=== PATIENT | female | born 1940 | race Caucasian/White ===

== ENCOUNTER → 2018-01-24 02:31 | Outpatient (CLI) | payer MEDICARE, OTHER, SELFPAY ==
[2018-01-24 13:22] LABS: INR 2.2 (1.0-3.5); Prothrombin Time 21.3 sec (9.3-10.8)
== END ==
PROVIDERS: PCP Family Medicine; Visit Provider Family Medicine
DX: I48.91 Unspecified atrial fibrillation (principal); Z79.01 Long term (current) use of anticoagulants
CPT/HCPCS: 36415; 85610

== ENCOUNTER 2018-02-21 02:29 | Outpatient (CLI) | payer MEDICARE, OTHER, SELFPAY ==
[2018-02-21 13:05] LABS: INR 2.9 (1.0-3.5); Prothrombin Time 27.6 sec (9.3-10.8)
== END 2018-02-21 02:49 ==
PROVIDERS: PCP Family Medicine; Visit Provider Family Medicine
DX: I48.91 Unspecified atrial fibrillation (principal); Z79.01 Long term (current) use of anticoagulants
CPT/HCPCS: 36415; 85610

== ENCOUNTER 2018-03-22 02:04 | Outpatient (CLI) | payer MEDICARE, OTHER, SELFPAY ==
[2018-03-22 11:49] LABS: INR 2.8 (1.0-3.5); Prothrombin Time 26.5 sec (9.3-10.8)
== END 2018-03-22 02:24 ==
PROVIDERS: PCP Family Medicine; Visit Provider Family Medicine
DX: I48.91 Unspecified atrial fibrillation (principal); Z79.01 Long term (current) use of anticoagulants
CPT/HCPCS: 36415; 85610

== ENCOUNTER 2018-04-17 07:59 | Outpatient (CLI) | payer MEDICARE, OTHER, SELFPAY ==
[2018-04-17 12:22] LABS: Prothrombin Time 37.1 sec (9.3-10.8)
== END 2018-04-17 08:19 ==
PROVIDERS: PCP Family Medicine; Visit Provider Family Medicine
DX: I48.91 Unspecified atrial fibrillation (principal); Z79.01 Long term (current) use of anticoagulants
CPT/HCPCS: 36415; 85610

== ENCOUNTER 2018-04-20 10:42 | Outpatient (CLI) | payer MEDICARE, OTHER, SELFPAY ==
[2018-04-20 12:52] LABS: INR 1.5 (1.0-3.5); Prothrombin Time 14.4 sec (9.3-10.8)
== END 2018-04-20 11:02 ==
PROVIDERS: PCP Family Medicine; Visit Provider Family Medicine
DX: I48.91 Unspecified atrial fibrillation (principal); Z79.01 Long term (current) use of anticoagulants
CPT/HCPCS: 36415; 85610

== ENCOUNTER 2018-04-25 02:03 | Outpatient (CLI) | payer MEDICARE, OTHER, SELFPAY ==
[2018-04-25 10:29] LABS: INR 2.1 (1.0-3.5); Prothrombin Time 19.8 sec (9.3-10.8)
== END 2018-04-25 02:23 ==
PROVIDERS: PCP Family Medicine; Visit Provider Family Medicine
DX: I48.91 Unspecified atrial fibrillation (principal); Z79.01 Long term (current) use of anticoagulants
CPT/HCPCS: 36415; 85610

== ENCOUNTER 2018-05-22 02:28 | Outpatient (CLI) | payer MEDICARE, OTHER, SELFPAY ==
[2018-05-22 13:26] LABS: INR 1.9 (1.0-3.5)
== END 2018-05-22 02:48 ==
PROVIDERS: PCP Family Medicine; Visit Provider Family Medicine
DX: I48.91 Unspecified atrial fibrillation (principal); Z79.01 Long term (current) use of anticoagulants
CPT/HCPCS: 36415; 85610

== ENCOUNTER 2018-06-21 01:45 | Outpatient (CLI) | payer MEDICARE, OTHER, SELFPAY ==
[2018-06-21 12:07] LABS: INR 1.8 (0.9-1.1); Prothrombin Time 18.5 sec (9.3-11.0)
== END 2018-06-21 02:05 ==
PROVIDERS: PCP Family Medicine; Visit Provider Family Medicine
DX: I48.91 Unspecified atrial fibrillation (principal); Z79.01 Long term (current) use of anticoagulants; M70.61 Trochanteric bursitis, right hip; M76.891 Other specified enthesopathies of right lower limb, excluding foot; M70.62 Trochanteric bursitis, left hip; R29.898 Other symptoms and signs involving the musculoskeletal system
CPT/HCPCS: 36415; 99214; 85610

== ENCOUNTER 2018-06-27 02:15 | Outpatient (CLI) | payer MEDICARE, OTHER, SELFPAY ==
[2018-06-27 12:46] LABS: INR 2.7 (0.9-1.1); Prothrombin Time 26.9 sec (9.3-11.0)
== END 2018-06-27 02:35 ==
PROVIDERS: PCP Family Medicine; Visit Provider Family Medicine
DX: I48.91 Unspecified atrial fibrillation (principal); Z79.01 Long term (current) use of anticoagulants
CPT/HCPCS: 36415; 85610

== ENCOUNTER 2018-07-24 02:21 | Outpatient (CLI) | payer MEDICARE, OTHER, SELFPAY ==
[2018-07-24 12:57] LABS: INR 2.4 (0.9-1.1)
== END 2018-07-24 02:41 ==
PROVIDERS: PCP Family Medicine; Visit Provider Family Medicine
DX: I48.91 Unspecified atrial fibrillation (principal); Z79.01 Long term (current) use of anticoagulants
CPT/HCPCS: 36415; 85610

== ENCOUNTER 2018-08-11 16:10 | Outpatient (CLI) | payer MEDICARE, OTHER, SELFPAY ==
[2018-08-11 16:51] LABS: Abs Immature Grans 0.02 k/cumm (0.0-0.09); Absolute Basophil Count 0.02 k/cumm (0.0-0.2); Absolute Eosinophil Count 0.08 k/cumm (0.0-0.7); Absolute Lymphocyte Count 1.57 k/cumm (1.2-3.4); Absolute Monocyte Count 0.65 k/cumm (0.11-0.7); Absolute Neutrophil Count 4.04 k/cumm (1.2-6.7); Basophils % 0.3; Eosinophils % 1.3; HGB 10.9 g/dL (12.0-15.5); Immature Grans % 0.3; Lymphocytes % 24.6; Mean Corpuscular Hemoglobin 29.1 pg (27.0-33.0); Mean Platelet Volume 9.2 fL (8.0-11.0); Monocytes % 10.2; Neutrophils % 63.3; Platelet Count 185 x1000/uL (130-400); RBC 3.75 m/cumm (4.00-5.20); RBC Distribution Width 13.4 % (11.7-14.6); White Blood Cell Count 6.38 k/cumm (4.4-10.8)
[2018-08-11 18:04] LABS: Anion Gap 8.4 mmol/L (3-11); BUN 31 mg/dL (7-18); CO2 28.6 mmol/L (21.0-32.0); CREATININE 0.97 mg/dL (0.55-1.02); Calcium 8.7 mg/dL (8.5-10.1); Chloride 104 mmol/L (98-107); Estimated GFR 55.83 (mL/min/1.73m2); Glucose 110 mg/dL (70-100); Potassium 4.2 mmol/L (3.5-5.1); Sodium 141 mmol/L (136-145)
== END 2018-08-11 16:30 ==
PROVIDERS: PCP Family Medicine; Visit Provider Family Medicine
DX: R50.9 Fever, unspecified (principal)
CPT/HCPCS: 36415; 80048; 85025

== ENCOUNTER 2018-08-18 02:26 | Outpatient (CLI) | payer MEDICARE, OTHER, SELFPAY ==
[2018-08-18 13:40] LABS: INR 3.4 (0.9-1.1); Prothrombin Time 34.7 sec (9.3-11.0)
== END 2018-08-18 02:46 ==
PROVIDERS: PCP Family Medicine; Visit Provider Family Medicine
DX: I48.91 Unspecified atrial fibrillation (principal); Z79.01 Long term (current) use of anticoagulants
CPT/HCPCS: 36415; 85610

== ENCOUNTER 2018-08-25 01:36 | Outpatient (CLI) | payer MEDICARE, OTHER, SELFPAY | END 2018-08-25 01:56 | PROVIDERS: PCP Family Medicine; Visit Provider Family Medicine | DX: N39.0 Urinary tract infection, site not specified (principal) | CPT/HCPCS: 87086 ==

== ENCOUNTER 2018-08-28 01:55 | Outpatient (CLI) | payer MEDICARE, OTHER, SELFPAY ==
[2018-08-28 13:06] LABS: Prothrombin Time 45.3 sec (9.3-11.0)
[2018-08-28 13:19] LABS: ALT 26 U/L (12-78); AST 20 U/L (15-37); Albumin 3.8 g/dL (3.4-5.0); Alkaline Phosphatase 88 U/L (46-116); Bilirubin, Direct 0.07 mg/dL (0.00-0.20); Bilirubin, Total 0.2 mg/dL (0.2-1.0); Total Protein 7.1 g/dL (6.4-8.2)
[2018-08-28 13:40] LABS: INR 4.5 (0.9-1.1)
== END 2018-08-28 02:15 ==
PROVIDERS: PCP Family Medicine; Visit Provider Family Medicine
DX: I48.91 Unspecified atrial fibrillation (principal); Z79.01 Long term (current) use of anticoagulants; B35.1 Tinea unguium
CPT/HCPCS: 36415; 80076; 85610

== ENCOUNTER 2018-09-01 02:07 | Outpatient (CLI) | payer MEDICARE, OTHER, SELFPAY ==
[2018-09-01 11:27] LABS: INR 1.6 (0.9-1.1); Prothrombin Time 15.8 sec (9.3-11.0)
[2018-09-01 13:01] LABS: Iron 100 ug/dL (50-175); Total Iron Binding Capacity 302 ug/dL (250-450); Transferrin Sat 33 % (15-50)
[2018-09-01 13:15] LABS: Ferritin 116 ng/mL (8-388)
== END 2018-09-01 02:27 ==
PROVIDERS: PCP Family Medicine; Visit Provider Family Medicine
DX: I48.91 Unspecified atrial fibrillation (principal); D50.9 Iron deficiency anemia, unspecified
CPT/HCPCS: 36415; 82728; 83540; 83550; 85610

== ENCOUNTER 2018-09-06 09:00 | Outpatient (CLI) | payer MEDICARE, OTHER, SELFPAY | END 2018-09-06 09:20 | PROVIDERS: PCP Family Medicine; Visit Provider Family Medicine | DX: M54.9 Dorsalgia, unspecified (principal); M70.61 Trochanteric bursitis, right hip; M70.62 Trochanteric bursitis, left hip | CPT/HCPCS: 85027; 99213; 99214; 82565; 85610 ==

== ENCOUNTER 2018-09-11 02:18 | Outpatient (CLI) | payer MEDICARE, OTHER, SELFPAY ==
[2018-09-11 12:51] LABS: INR 2.6 (0.9-1.1); Prothrombin Time 26.6 sec (9.3-11.0)
== END 2018-09-11 02:38 ==
PROVIDERS: PCP Family Medicine; Visit Provider Family Medicine
DX: I48.91 Unspecified atrial fibrillation (principal); Z79.01 Long term (current) use of anticoagulants
CPT/HCPCS: 36415; 85610

== ENCOUNTER 2018-09-15 01:30 | Outpatient (CLI) | payer MEDICARE, OTHER, SELFPAY ==
[2018-09-15 12:36] LABS: INR 2.9 (0.9-1.1); Prothrombin Time 29.7 sec (9.3-11.0)
== END 2018-09-15 01:50 ==
PROVIDERS: PCP Family Medicine; Visit Provider Family Medicine
DX: I48.91 Unspecified atrial fibrillation (principal); Z79.01 Long term (current) use of anticoagulants
CPT/HCPCS: 36415; 85610

== ENCOUNTER 2018-09-21 00:56 | Outpatient (CLI) | payer MEDICARE, OTHER, SELFPAY ==
--- NOTE | 2018-09-21 07:49 | DI.US_ITS ---
SYMPTOM/DIAGNOSIS: RUQ PAIN, R10.11 ABDOMEN ULTRASOUND: The visualized liver parenchyma is normal in appearance. There is no evidence of cholelithiasis or biliary dilatation. Pancreas appears intact as visualized but the tail was not seen. The kidneys appear normal with no evidence of hydronephrosis or nephrolithiasis. Spleen is unremarkable except for an apparent small calcified granuloma. Abdominal aorta and IVC are of normal diameter. CONCLUSION: No evidence of cholelithiasis.
== END 2018-09-21 01:16 ==
PROVIDERS: PCP Family Medicine; Visit Provider Family Medicine
DX: R10.11 Right upper quadrant pain (principal)
CPT/HCPCS: 76700

== ENCOUNTER 2018-09-26 09:29 | Emergency (ER) | payer MEDICARE, OTHER, SELFPAY ==
[2018-09-26 09:33] VITALS: BP 143/68; PULSE 77; RESP 20; TEMP 37; O2SAT 97
--- NOTE | 2018-09-26 09:44 | DI.RAD_ITS ---
SYMPTOM/DIAGNOSIS: COUGH, RT PAIN PA AND LATERAL CHEST: Comparison is made with 07/09/13. The heart size is normal. The lungs appear clear. No infiltrate, effusion or pulmonary edema is seen. IMPRESSION: No acute abnormality.
--- NOTE | 2018-09-26 09:44 | W.ED.GENAD ---
Discharge Plan Disposition Patient Disposition: HOME Condition: Stable Discharge Details Chief Complaint: RespSymp Clinical Impression: Acute bronchitis Primary Care Provider: Jordan Lobo ED Provider: Dustin Mallory Home Meds and New Rx's Prescriptions: New guaifenesin [Mucinex] 600 mg tablet extended release 12hr 600 mg PO Q12H PRNQty: 10 RF: 0 Continued gabapentin 100 mg capsule 100 mg PO TID Qty: 90 RF: 2 riboflavin (vitamin B2) [Vitamin B-2] 100 MG tablet 400 mg PO 3x/week RF: 0 coenzyme Q10 30 MG capsule 30 mg PO DAILY RF: 0 magnesium oxide 250 MG tablet 250 mg PO DAILY RF: 0 lutein 20 MG capsule 20 mg PO DAILY RF: 0 ferrous sulfate 325 MG tablet 325 mg PO BID Qty: 60 RF: 2 levothyroxine [Synthroid] 112 MCG tablet 112 mcg PO DAILY Qty: 90 RF: 4 diltiazem HCl 30 mg tablet 30 mg PO BID Qty: 180 RF: 4 acyclovir 400 mg tablet 400 mg PO DAILY Qty: 90 RF: 4 warfarin [Coumadin] 5 mg tablet See Rx Instructions PO DIRECTED Qty: 135 RF: 3 vitamin A 8,000 UNIT capsule 1 tab PO QAM RF: 0 potassium chloride 10 MEQ tablet extended release 1 tab PO QAM RF: 0 Discharge Instructions Instructions: Acute Bronchitis (ED) Additional Instructions: As we discussed, we will hold on antibiotic treatment at this time. Return if you develop a fever, worsening cough, or any other acute concerns. [place] amounts of fluids to maintain hydration. Take Mucinex as prescribed. Continue regular medications. Follow-up with regular doctor if not improving in 7 days time. Medical Decision Making 78-year-old female with 2 days of cough with production of green sputum. She is well-appearing, in no acute distress, has unremarkable vital signs with normal oxygenation. She does have positive sick contacts with her who was admitted to the hospital with sepsis. She states his illness began with a similar upper respiratory infection. Referred for chest x-ray to rule out focal lobar consolidation. Patient takes warfarin for paroxysmal atrial fibrillation. She has allergies to penicillins, sulfa, doxycycline. We discussed a trial of outpatient surveillance and deferral of antibiotics at this time as I feel the risk of antibiotic treatment with what would likely be a cephalosporin, outweighs the benefit at this time. She is in agreement. She will return to follow-up with regular doctor for worsening HPI General Mode of arrival: ambulatory. Date/Time Provider Initiated Documentation: 09/26/18 09:31. Limitations to Documentation: no limitations. Information obtained by: patient. History of Present Illness 78 year old F presents to the emergency department with the chief complaint of Cough with production of sputum x2 days, described as moderate, Quality is described as dull, and is localized to the chest. Patient started experiencing this day(s) and it has been intermittent. No relieving factors improve symptom(s), No exacerbating factors reported . Patient notes cough. Patient did receive the following treatments prior to arrival, none Related Data Home Medications Medication Instructions Recorded Confirmed potassium chloride 1 tab PO QAM 07/13/14 09/26/18 vitamin A 1 tab PO QAM 07/13/14 09/26/18 coenzyme Q10 30 mg PO DAILY 09/09/16 09/26/18 lutein 20 mg PO DAILY 09/09/16 09/26/18 magnesium oxide 250 mg PO DAILY 09/09/16 09/26/18 riboflavin (vitamin B2) [Vitamin 400 mg PO 3x/week 09/09/16 09/26/18 B-2] ferrous sulfate 325 mg PO BID #60 tab-cap 11/11/16 09/26/18 levothyroxine [Synthroid] 112 mcg PO DAILY #90 tab-cap 12/08/17 09/26/18 diltiazem 30 mg tablet 30 mg PO BID #180 tab-cap 06/07/18 09/26/18 acyclovir 400 mg tablet 400 mg PO DAILY #90 tab-cap 07/12/18 09/26/18 warfarin 5 mg tablet See Rx Instructions PO DIRECTED 07/14/18 09/26/18 #135 tab-cap gabapentin 100 mg capsule 100 mg PO TID #90 cap 09/12/18 09/26/18 guaifenesin [Mucinex] 600 mg PO Q12H PRN #10 tab 09/26/18 Previous Rx's Medication Instructions Recorded levothyroxine [Synthroid] 112 mcg PO DAILY #90 tab-cap 12/08/17 diltiazem 30 mg tablet 30 mg PO BID #180 tab-cap 06/07/18 acyclovir 400 mg tablet 400 mg PO DAILY #90 tab-cap 07/12/18 warfarin 5 mg tablet See Rx Instructions PO DIRECTED 07/14/18 #135 tab-cap gabapentin 100 mg capsule 100 mg PO TID #90 cap 09/12/18 guaifenesin [Mucinex] 600 mg PO Q12H PRN #10 tab 09/26/18 Allergies Allergy/AdvReac Type Severity Reaction Status Date / Time Penicillins Allergy Intermediate KNEE Verified 09/26/18 09:36 SWELLING Sulfa (Sulfonamide Allergy Intermediate Hives Verified 09/26/18 09:36 Antibiotics) codeine AdvReac Intermediate NAUSEA/VOMI Verified 09/26/18 09:36 TING doxycycline AdvReac Intermediate HEADACHES Verified 09/26/18 09:36 morphine AdvReac Mild NAUSEA/VOMI Verified 09/26/18 09:36 TING Opioids-Meperidine and AdvReac Unknown unknown Verified 09/26/18 09:36 Related [Opioids-Meperidine \E&E\ Related] General Stated Complaint: RespSymp AMIE: 3 Review of Systems Review of Systems No difficulty breathing. She has been eating drinking normally. 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 Brother AIDS Other Family history of GI malignancy Social History Smoking/Tobacco Use Status: Former Tobacco Use Alcohol Intake: never Drug use: Never Substance use type: does not use Do you feel safe at home: Yes Do you feel safe in your relationship?: Yes Exam Narrative Exam Narrative: GEN: awake, alert, oriented 3. Pleasant, well groomed, interactive. HEAD: Normocephalic, atraumatic ENT: Mucous membranes moist, oropharynx unremarkable, External ear exam unremarkable EYES: PERRL, EOMI NECK: Full ROM, no MEGHA, no menigismus CHEST/RESP: Nontender, clear to auscultation bilateral, no wheeze/rhonchi/rales, cough noted CARDIOVASCULAR: RRR, no murmur, rub linda. 2+ Rad pulse bilateral ABDOMEN: Soft, nontender, no mass. +Bowel sounds EXT: Full ROM, no edema, no rash Neuro: Grossly normal neurologic exam, conversant, interactive. Psych: Speech fluent, thoughts congruent, affect normal Course Vital Signs Temperature 37.0 C 09/26/18 09:33 Pulse 77 09/26/18 09:33 Respiratory Rate 20 09/26/18 09:33 Blood Pressure 143/68 H 09/26/18 09:33 Pulse Oximetry 97 09/26/18 09:33 Temperature 37.0 C 09/26/18 09:33 Pulse 77 09/26/18 09:33 Respiratory Rate 20 09/26/18 09:33 Respiratory Effort Non-Labored 09/26/18 09:39 Respiratory Depth Normal 09/26/18 09:39 Blood Pressure 143/68 H 09/26/18 09:33 Pulse Oximetry 97 09/26/18 09:33 Oxygen Delivery Method Room Air 09/26/18 09:33 Oxygen Flow Rate 0 09/26/18 09:33 Pain Level 3 09/26/18 09:33
--- NOTE | 2018-09-26 09:51 | ED.GENADUL_ITS ---
Discharge Plan Disposition Patient Disposition: HOME Condition: Stable Discharge Details Chief Complaint: RespSymp Clinical Impression: Acute bronchitis Primary Care Provider: Jordan Lobo ED Provider: Dustin Mallory Home Meds and New Rx's Prescriptions: New guaifenesin [Mucinex] 600 mg tablet extended release 12hr 600 mg PO Q12H PRNQty: 10 RF: 0 Continued gabapentin 100 mg capsule 100 mg PO TID Qty: 90 RF: 2 riboflavin (vitamin B2) [Vitamin B-2] 100 MG tablet 400 mg PO 3x/week RF: 0 coenzyme Q10 30 MG capsule 30 mg PO DAILY RF: 0 magnesium oxide 250 MG tablet 250 mg PO DAILY RF: 0 lutein 20 MG capsule 20 mg PO DAILY RF: 0 ferrous sulfate 325 MG tablet 325 mg PO BID Qty: 60 RF: 2 levothyroxine [Synthroid] 112 MCG tablet 112 mcg PO DAILY Qty: 90 RF: 4 diltiazem HCl 30 mg tablet 30 mg PO BID Qty: 180 RF: 4 acyclovir 400 mg tablet 400 mg PO DAILY Qty: 90 RF: 4 warfarin [Coumadin] 5 mg tablet See Rx Instructions PO DIRECTED Qty: 135 RF: 3 vitamin A 8,000 UNIT capsule 1 tab PO QAM RF: 0 potassium chloride 10 MEQ tablet extended release 1 tab PO QAM RF: 0 Discharge Instructions Instructions: Acute Bronchitis (ED) Additional Instructions: As we discussed, we will hold on antibiotic treatment at this time. Return if you develop a fever, worsening cough, or any other acute concerns. [place] amounts of fluids to maintain hydration. Take Mucinex as prescribed. Continue regular medications. Follow-up with regular doctor if not improving in 7 days time. Medical Decision Making 78-year-old female with 2 days of cough with production of green sputum. She is well-appearing, in no acute distress, has unremarkable vital signs with normal oxygenation. She does have positive sick contacts with her who was admitted to the hospital with sepsis. She states his illness began with a sim ilar upper respiratory infection. Referred for chest x-ray to rule out focal lobar consolidation. Patient takes warfarin for paroxysmal atrial fibrillation. She has allergies to penicillins, sulfa, doxycycline. We discussed a trial of outpatient surveillance and deferral of antibiotics at this time as I feel the risk of antibiotic treatment with what would likely be a cephalosporin, outweighs the benefit at this time. She is in agreement. She will return to follow-up with regular doctor for worsening HPI General Mode of arrival: ambulatory . Date/Time Provider Initiated Documentation: 09/26/18 09:31 . Limitations to Documentation: no limitations . Information obtained by: patient . History of Present Illness 78 year old F presents to the emergency department with the chief complaint of Cough with production of sputum x2 days, described as moderate, Quality is described as dull, and is localized to the chest. Patient started experiencing this day(s) and it has been intermittent. No relieving factors improve symptom(s), No exacerbating factors reported . Patient notes cough. Patient did receive the following treatments prior to arrival, none Related Data Home Medications Medication Instructions Recorded Confirmed potassium chloride 1 tab PO QAM 07/13/14 09/26/18 vitamin A 1 tab PO QAM 07/13/14 09/26/18 coenzyme Q10 30 mg PO DAILY 09/09/16 09/26/18 lutein 20 mg PO DAILY 09/09/16 09/26/18 magnesium oxide 250 mg PO DAILY 09/09/16 09/26/18 riboflavin (vitamin B2) [Vitamin 400 mg PO 3x/week 09/09/16 09/26/18 B-2] ferrous sulfate 325 mg PO BID #60 tab-cap 11/11/16 09/26/18 levothyroxine [Synthroid] 112 mcg PO DAILY #90 tab-cap 12/08/17 09/26/18 diltiazem 30 mg tablet 30 mg PO BID #180 tab-cap 06/07/18 09/26/18 acyclovir 400 mg tablet 400 mg PO DAILY #90 tab-cap 07/12/18 09/26/18 warfarin 5 mg tablet See Rx Instructions PO DIRECTED 07/14/18 09/26/18 #135 tab-cap gabapentin 100 mg capsule 100 mg PO TID #90 cap 09/12/18 09/26/18 guaifenesin [Mucinex] 600 mg PO Q12H PRN #10 tab 09/26/18 Previous Rx's Medication Instructions Recorded levothyroxine [Synthroid] 112 mcg PO DAILY #90 tab-cap 12/08/17 diltiazem 30 mg tablet 30 mg PO BID #180 tab-cap 06/07/18 acyclovir 400 mg tablet 400 mg PO DAILY #90 tab-cap 07/12/18 warfarin 5 mg tablet See Rx Instructions PO DIRECTED 07/14/18 #135 tab-cap gabapentin 100 mg capsule 100 mg PO TID #90 cap 09/12/18 guaifenesin [Mucinex] 600 mg PO Q12H PRN #10 tab 09/26/18 Allergies Allergy/AdvReac Type Severity Reaction Status Date / Time Penicillins Allergy Intermediate KNEE Verified 09/26/18 09:36 SWELLING Sulfa (Sulfonamide Allergy Intermediate Hives Verified 09/26/18 09:36 Antibiotics) codeine AdvReac Intermediate NAUSEA/VOMI Verified 09/26/18 09:36 TING doxycycline AdvReac Intermediate HEADACHES Verified 09/26/18 09:36 morphine AdvReac Mild NAUSEA/VOMI Verified 09/26/18 09:36 TING Opioids-Meperidine and AdvReac Unknown unknown Verified 09/26/18 09:36 Related [Opioids-Meperidine \E&E\ Related] General Stated Complaint: RespSymp AMIE: 3 Review of Systems Review of Systems No difficulty breathing. She has been eating drinking normally. 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 Brother AIDS Other Family history of GI malignancy Social History Smoking/Tobacco Use Status: Former Tobacco Use Alcohol Intake: never Drug use: Never Substance use type: does not use Do you feel safe at home: Yes Do you feel safe in your relationship?: Yes Exam Narrative Exam Narrative: GEN: awake, alert, oriented 3. Pleasant, well groomed, interactive. HEAD: Normocephalic, atraumatic ENT: Mucous membranes moist, oropharynx unremarkable, External ear exam unremarkable EYES: PERRL, EOMI NECK: Full ROM, no MEGHA, no menigismus CHEST/RESP: Nontender, clear to auscultation bilateral, no wheeze/rhonchi/rales, cough noted CARDIOVASCULAR: RRR, no murmur, rub linda. 2+ Rad pulse bilateral ABDOMEN: Soft, nontender, no mass. +Bowel sounds EXT: Full ROM, no edema, no rash Neuro: Grossly normal neurologic exam, conversant, interactive. Psych: Speech fluent, thoughts congruent, affect normal Course Vital Signs Temperature 37.0 C 09/26/18 09:33 Pulse 77 09/26/18 09:33 Respiratory Rate 20 09/26/18 09:33 Blood Pressure 143/68 H 09/26/18 09:33 Pulse Oximetry 97 09/26/18 09:33 Temperature 37.0 C 09/26/18 09:33 Pulse 77 09/26/18 09:33 Respiratory Rate 20 09/26/18 09:33 Respiratory Effort Non-Labored 09/26/18 09:39 Respiratory Depth Normal 09/26/18 09:39 Blood Pressure 143/68 H 09/26/18 09:33 Pulse Oximetry 97 09/26/18 09:33 Oxygen Delivery Method Room Air 09/26/18 09:33 Oxygen Flow Rate 0 09/26/18 09:33 Pain Level 3 09/26/18 09:33
[2018-09-26 12:40] VITALS: BP 143/68; PULSE 77; RESP 20; TEMP 37; O2SAT 97
== END 2018-09-26 10:32 | disposition home or self-care (01) ==
PROVIDERS: Emergency Provider Emergency Medicine; PCP Family Medicine
DX: J20.9 Acute bronchitis, unspecified (principal); I48.0 Paroxysmal atrial fibrillation; Z79.01 Long term (current) use of anticoagulants
CPT/HCPCS: 99283; 71046

== ENCOUNTER 2018-10-13 03:36 | Outpatient (CLI) | payer MEDICARE, OTHER, SELFPAY ==
[2018-10-13 11:26] LABS: INR 2.3 (0.9-1.1); Prothrombin Time 23.5 sec (9.3-11.0)
== END 2018-10-13 03:56 ==
PROVIDERS: PCP Family Medicine; Visit Provider Family Medicine
DX: I48.91 Unspecified atrial fibrillation (principal); Z79.01 Long term (current) use of anticoagulants
CPT/HCPCS: 36415; 85610

== ENCOUNTER 2018-11-17 09:55 | Outpatient (CLI) | payer MEDICARE, OTHER, SELFPAY ==
[2018-11-17 11:18] LABS: INR 1.7 (0.9-1.1); Prothrombin Time 17.5 sec (9.3-11.0)
[2018-11-17 12:38] LABS: Vitamin B12 1091 pg/mL (193-986)
== END 2018-11-17 10:15 ==
PROVIDERS: PCP Family Medicine; Visit Provider Family Medicine
DX: D64.9 Anemia, unspecified (principal); I48.91 Unspecified atrial fibrillation; Z79.01 Long term (current) use of anticoagulants
CPT/HCPCS: 36415; 82607; 85610

== ENCOUNTER 2018-11-23 01:23 | Outpatient (CLI) | payer MEDICARE, OTHER, SELFPAY ==
[2018-11-23 11:45] LABS: INR 2.3 (0.9-1.1); Prothrombin Time 23.4 sec (9.3-11.0)
== END 2018-11-23 01:43 ==
PROVIDERS: PCP Family Medicine; Visit Provider Family Medicine
DX: I48.91 Unspecified atrial fibrillation (principal); Z79.01 Long term (current) use of anticoagulants
CPT/HCPCS: 36415; 85610

== ENCOUNTER 2018-11-29 00:42 | Outpatient (CLI) | payer MEDICARE, OTHER, SELFPAY ==
--- NOTE | 2018-11-29 09:58 | DI.US_ITS ---
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 There is little if any visible atheromatous plaque in the region surveyed. Flow velocities in the common, internal and external carotid arteries are within normal limits bilaterally. There is bilateral antegrade vertebral flow. CONCLUSION: No evidence of a hemodynamically significant carotid stenosis. No carotid occlusion identified.
== END 2018-11-29 01:02 ==
PROVIDERS: PCP Family Medicine; Visit Provider Family Medicine
DX: G45.9 Transient cerebral ischemic attack, unspecified (principal); Z86.79 Personal history of other diseases of the circulatory system
CPT/HCPCS: 93880

== ENCOUNTER 2018-12-22 02:49 | Outpatient (CLI) | payer MEDICARE, OTHER, SELFPAY ==
[2018-12-22 12:43] LABS: INR 2.4 (0.9-1.1); Prothrombin Time 24.4 sec (9.3-11.0)
== END 2018-12-22 03:09 ==
PROVIDERS: PCP Family Medicine; Visit Provider Family Medicine
DX: I48.91 Unspecified atrial fibrillation (principal); Z79.01 Long term (current) use of anticoagulants
CPT/HCPCS: 36415; 85610

== ENCOUNTER 2019-01-19 09:11 | Outpatient (CLI) | payer MEDICARE, OTHER, SELFPAY ==
[2019-01-19 13:06] LABS: INR 2.2 (0.9-1.1); Prothrombin Time 22.1 sec (9.3-11.0)
== END 2019-01-19 09:31 ==
PROVIDERS: PCP Family Medicine; Visit Provider Family Medicine
DX: I48.91 Unspecified atrial fibrillation (principal); Z79.01 Long term (current) use of anticoagulants
CPT/HCPCS: 36415; 85610

== ENCOUNTER 2019-02-16 02:07 | Outpatient (CLI) | payer MEDICARE, OTHER, SELFPAY ==
[2019-02-16 12:55] LABS: INR 2.2 (0.9-1.1); Prothrombin Time 22.5 sec (9.3-11.0)
== END 2019-02-16 02:27 ==
PROVIDERS: PCP Family Medicine; Visit Provider Family Medicine
DX: I48.91 Unspecified atrial fibrillation (principal); Z79.01 Long term (current) use of anticoagulants
CPT/HCPCS: 36415; 85610

== ENCOUNTER 2019-03-19 02:41 | Outpatient (CLI) | payer MEDICARE, OTHER, SELFPAY ==
[2019-03-19 11:12] LABS: INR 3.2 (0.9-1.1); Prothrombin Time 31.5 sec (9.3-11.0)
== END 2019-03-19 03:01 ==
LOC: LOS 02:41 → LBO 08:01
PROVIDERS: PCP Family Medicine; Visit Provider Family Medicine
DX: I48.91 Unspecified atrial fibrillation (principal); Z79.01 Long term (current) use of anticoagulants
CPT/HCPCS: 36415; 85610

== ENCOUNTER 2019-03-26 02:09 | Outpatient (CLI) | payer MEDICARE, OTHER, SELFPAY ==
[2019-03-26 10:18] LABS: INR 1.6 (0.9-1.1); Prothrombin Time 16.1 sec (9.3-11.0)
== END 2019-03-26 02:29 ==
PROVIDERS: PCP Family Medicine; Visit Provider Family Medicine
DX: I48.91 Unspecified atrial fibrillation (principal); Z79.01 Long term (current) use of anticoagulants
CPT/HCPCS: 36415; 85610

== ENCOUNTER 2019-04-02 01:48 | Outpatient (CLI) | payer MEDICARE, OTHER, SELFPAY ==
--- NOTE | 2019-04-02 09:47 | DI.MAMMO_ITS ---
EXAM: MG MAMMO SCREENING CLINICAL HISTORY: screening Z12.39 TECHNIQUE: Bilateral full field digital CC and MLO mammographic images were obtained with 3D tomosyn thesis and utilizing computer aided detection (CAD). COMPARISON: Available for comparison. FINDINGS: Masses/Architectural Distortion: None seen. Microcalcifications: No suspicious pleomorphic-type are seen. Skin Thickening/Nipple Retraction: None. IMPRESSION: 1. No significant interval change with no specific features of malignancy noted. 2. Unless there is more urgent need, screening mammography is recommended, as per [employer] guidelines. ACR BI-RAD Category- 1 Negative Breast Density - Category C - Heterogeneously dense The mammogram demonstrates the patient's breast tissue is dense. Dense breast tissue is very common a nd is not abnormal but dense breast tissue can make it harder to find cancer on a mammogram. Also, de nse breast tissue may increase their breast cancer risk. This information about the result of the [facility] mogram report was provided to the patient to raise their awareness. Use this report when you speak wi th the patient about their risks for breast cancer, which includes their family history. At that time , you may recommend for more screening tests (Ultrasound or MRI) as they might be useful based on the ir risk. A negative radiographic report should not delay biopsy if a dominant or clinically suspicious mass is present. Up to ten percent of cancers are not identified on mammography. A negative report may reinforce clinical impression. Adenosis and dense breasts may obscure an underlying neoplasm. False positive reports average 6 to 10%.
== END 2019-04-02 02:08 ==
PROVIDERS: PCP Family Medicine; Visit Provider Family Medicine
DX: Z12.31 Encounter for screening mammogram for malignant neoplasm of breast (principal)
CPT/HCPCS: 77063; 77067

== ENCOUNTER 2019-04-02 02:08 | Outpatient (CLI) | payer MEDICARE, OTHER, SELFPAY ==
[2019-04-02 11:08] LABS: INR 1.9 (0.9-1.1); Prothrombin Time 18.6 sec (9.3-11.0)
== END 2019-04-02 02:28 ==
PROVIDERS: PCP Family Medicine; Visit Provider Family Medicine
DX: I48.91 Unspecified atrial fibrillation (principal); Z79.01 Long term (current) use of anticoagulants
CPT/HCPCS: 36415; 85610

== ENCOUNTER 2019-04-09 01:44 | Outpatient (CLI) | payer MEDICARE, OTHER, SELFPAY ==
[2019-04-09 13:22] LABS: INR 2.1 (0.9-1.1); Prothrombin Time 20.7 sec (9.3-11.0)
== END 2019-04-09 02:04 ==
PROVIDERS: PCP Family Medicine; Visit Provider Family Medicine
DX: I48.91 Unspecified atrial fibrillation (principal); Z79.01 Long term (current) use of anticoagulants
CPT/HCPCS: 36415; 85610

== ENCOUNTER 2019-04-26 10:32 | Outpatient (CLI) | payer MEDICARE, OTHER, SELFPAY ==
[2019-04-26 11:30] LABS: INR 2.7 (0.9-1.1); Prothrombin Time 26.9 sec (9.3-11.0)
== END 2019-04-26 10:52 ==
PROVIDERS: PCP Family Medicine; Visit Provider Family Medicine
DX: I48.91 Unspecified atrial fibrillation (principal); Z79.01 Long term (current) use of anticoagulants
CPT/HCPCS: 36415; 85610

== ENCOUNTER 2019-05-22 03:05 | Outpatient (CLI) | payer MEDICARE, OTHER, SELFPAY ==
[2019-05-22 13:19] LABS: INR 2.1 (0.9-1.1); Prothrombin Time 20.5 sec (9.3-11.0)
== END 2019-05-22 03:25 ==
PROVIDERS: PCP Family Medicine; Visit Provider Family Medicine
DX: I48.91 Unspecified atrial fibrillation (principal); Z79.01 Long term (current) use of anticoagulants
CPT/HCPCS: 36415; 85610

== ENCOUNTER 2019-06-15 17:31 | Emergency (ER) | payer MEDICARE, OTHER, SELFPAY ==
[2019-06-15] VITALS (12 sets, daily range): BP systolic 157–188; BP diastolic 71–75; PULSE 58–63; RESP 10–22; TEMP 36.5; O2SAT 97–100
--- NOTE | 2019-06-15 18:03 | W.ED.GENAD ---
Discharge Plan Disposition Patient Disposition: AGAINST MEDICAL ADVICE Condition: Stable Discharge Details Chief Complaint: Chest Pain Clinical Impression: Chest pain Primary Care Provider: Jordan Lobo ED Provider: Kiran Buck Home Meds and New Rx's Prescriptions: Continued riboflavin (vitamin B2) [Vitamin B-2] 100 MG tablet 400 mg PO 3x/week RF: 0 lutein 20 MG capsule 20 mg PO DAILY RF: 0 diltiazem HCl 30 mg tablet 30 mg PO BID Qty: 180 RF: 4 coenzyme Q10 30 mg capsule 30 mg PO DAILY PRNRF: 0 levothyroxine [Synthroid] 112 mcg tablet 112 mcg PO DAILY Qty: 90 RF: 4 acyclovir 400 mg tablet 400 mg PO DAILY Qty: 90 RF: 4 warfarin [Coumadin] 5 mg tablet See Rx Instructions PO DIRECTED Qty: 135 RF: 3 potassium chloride 10 MEQ tablet extended release 1 tab PO QAM RF: 0 vitamin A 8,000 unit capsule 8,000 unit PO .QOD RF: 0 Discharge Instructions Additional Instructions: your blood work did not show any concerning findings. 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 Denies any pain now, no prior known cad. She denies fevers, cough n/v. Her heart score is 3, will send troponin. She has had prior dissection and story is concerning for this. I strongly recommended obtaining cta to eval for dissection among other potential life threatening pathologies and she declined. She has capacity to make her own decisions and understands risks of missing this diagnosis including and permanent disability. She is refusing the ct against my medical advise. She also declines chest xray. Will reassess after labs are done labs unremarkable remains stable and still declines CT. She declines any further workup despite me requesting at least a repeat troponin and possible admission. She is leaving against my medical advise and has capacity to make decisions and understands risks of leaving includingdeath and permanent disability. She understands she can return at any time if she changes her mind Differential Diagnosis Differential Diagnosis: acs, dissection, pe Medical Records Medical records reviewed: Yes I reviewed the patient's medical records. Lab Data Lab results reviewed: Yes I reviewed the patient's lab results. ECG Data Attestation: I personally reviewed and interpreted this ECG (s) as follows: Prior ECG tracings: not available for review Interpretation: sinus rhythm, rate of 62, qtc 435, no acute st t wave ischemic fidnings HPI General Mode of arrival: ambulatory. Date/Time Provider Initiated Documentation: 06/15/19 17:38. Limitations to Documentation: no limitations. Information obtained by: patient. History of Present Illness 78 year old F presents to the emergency department with the chief complaint of jaw pain and chest pain, described as moderate, and it has been constant. No relieving factors improve symptom(s), No exacerbating factors reported . Patient did receive the following treatments prior to arrival, none Related Data Home Medications Medication Instructions Recorded Confirmed potassium chloride 1 tab PO QAM 07/13/14 06/15/19 lutein 20 mg PO DAILY 09/09/16 06/15/19 riboflavin (vitamin B2) [Vitamin 400 mg PO 3x/week 09/09/16 06/15/19 B-2] diltiazem HCl 30 mg tablet 30 mg PO BID #180 tab-cap 06/07/18 06/15/19 coenzyme Q10 30 mg capsule 30 mg PO DAILY PRN 11/16/18 06/15/19 vitamin A 8,000 unit capsule 8,000 unit PO .QOD cap 11/16/18 06/15/19 levothyroxine 112 mcg tablet 112 mcg PO DAILY #90 tab-cap 02/02/19 06/15/19 acyclovir 400 mg tablet 400 mg PO DAILY #90 tab-cap 06/08/19 06/15/19 warfarin 5 mg tablet See Rx Instructions PO DIRECTED 06/08/19 06/15/19 #135 tab-cap Previous Rx's Medication Instructions Recorded diltiazem HCl 30 mg tablet 30 mg PO BID #180 tab-cap 06/07/18 levothyroxine 112 mcg tablet 112 mcg PO DAILY #90 tab-cap 02/02/19 acyclovir 400 mg tablet 400 mg PO DAILY #90 tab-cap 06/08/19 warfarin 5 mg tablet See Rx Instructions PO DIRECTED 06/08/19 #135 tab-cap Allergies Allergy/AdvReac Type Severity Reaction Status Date / Time Penicillins Allergy Intermediate KNEE Verified 06/15/19 17:54 SWELLING Sulfa (Sulfonamide Allergy Intermediate Hives Verified 06/15/19 17:54 Antibiotics) codeine AdvReac Intermediate NAUSEA/VOMI Verified 06/15/19 17:54 TING doxycycline AdvReac Intermediate HEADACHES Verified 06/15/19 17:54 morphine AdvReac Mild NAUSEA/VOMI Verified 06/15/19 17:54 TING Opioids-Meperidine and AdvReac Unknown unknown Verified 06/15/19 17:54 Related [Opioids-Meperidine \E&E\ Related] General Stated Complaint: Chest Pain AMIE: 2 Review of Systems All systems reviewed & are unremarkable except as noted in HPI and below Constitutional Constitutional: Denies chills, Denies fever(s) and Denies weakness Cardiovascular Cardiovascular: Denies dyspnea Respiratory Respiratory: Denies cough and Denies dyspnea Gastrointestinal Gastrointestinal: Denies abdominal pain, Denies nausea and Denies vomiting Musculoskeletal Musculoskeletal: Denies joint swelling Neurologic Neurologic: Denies weakness [facility] Medical History (Updated 11/17/18 @ 07:56 by Jordan Lobo MD) Abnormal weight loss (Resolved) Atrial fibrillation (Chronic) 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) Hypothyroidism (Chronic) left thryoid nodule Migraine (Chronic) Trochanteric bursitis, right hip (Chronic) Surgical History (Updated 11/17/18 @ 07:53 by Jordan Lobo MD) Appendectomy (~1960) , Ectopic REMOVED 1 TUBE PROCEDURES 2 BUNIONECTOMIES IN THE LATE BENIGN BREAST CYST REMOVED Replacement of total knee joint RIGHT Status post appendectomy (Resolved) Status post tonsillectomy and adenoidectomy (Resolved) Status post total knee replacement (Resolved) Tonsillectomy and adenoidectomy Social History (Updated 11/21/18 @ 12:04 by Juan Dupont) Smoking/Tobacco Use Status: Former Tobacco Use Tobacco: How many years used: 8 Second Hand Exposure: Yes Alcohol Intake: never Drug use: Current Sobriety Substance use type: does not use, former substance user, marijuana and crack/cocaine Caregiver/Support person: No Household members: significant other Housing: house Do you need help understanding health information?: Never Pets and animals: Yes Pets and animals: dog(s) Sexually active: No Do you think of yourself as: straight/heterosexual Current gender identity: female What is your relationship status?: living with partner How often do you talk on the phone with friends or family?: three or more times per week How often do you get together with friends or relatives?: once per week How often do you attend jehovah's witness or congregational services?: decline to answer Do you belong to any clubs or organized social groups?: no Panel score (0-1 are the most socially isolated patients): 2 What type of physical activity do you participate in: decline to answer Duration: 15-30 minutes/day Frequency: 1-2 times per week Kate/Taoist: Congregational Special kate needs: No Seatbelt use: always Helmet use: No Drive intox 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 Do you feel safe at home: Yes Do you feel safe in your relationship?: Yes Exam Const General: no acute distress Orientation: alert HENMT Head: normal to inspection Ears: external ears normal General nose exam: external nose normal Mouth: moist mucous membranes Eyes General: appearance normal, both eyes and all related structures Neck Neck: normal visual inspection Resp Effort & Inspection: normal respiratory effort and able to speak in complete sentences Cardio Rate: regular rate Skin General skin exam: no rashes or lesions noted Neuro General: alert and oriented x3 Extrem General: normal to inspection Psych Mental Status: mental status grossly normal Course Vital Signs Vital signs: Vital Signs Temperature 36.5 C 06/15/19 17:35 Pulse 63 06/15/19 17:35 Respiratory Rate 12 06/15/19 17:35 Blood Pressure 188/74 H 06/15/19 17:35 Pulse Oximetry 98 06/15/19 17:35 Temperature 36.5 C 06/15/19 17:35 Temperature Source Temporal Artery Scan 06/15/19 17:35 Pulse 63 06/15/19 17:35 Respiratory Rate 16 06/15/19 17:56 Respiratory Effort Non-Labored 06/15/19 17:56 Respiratory Depth Normal 06/15/19 17:56 Respiratory Pattern Normal 06/15/19 17:56 Blood Pressure 188/74 H 06/15/19 17:35 Blood Pressure Position Sitting 06/15/19 17:35 Pulse Oximetry 98 06/15/19 17:35 Oxygen Delivery Method Room Air 06/15/19 17:35 Oxygen Flow Rate 0 06/15/19 17:35 Pain Level 5 06/15/19 17:56
[2019-06-15 18:04] LABS: Abs Immature Grans 0.01 k/cumm (0.0-0.09); Absolute Basophil Count 0.04 k/cumm (0.0-0.2); Absolute Eosinophil Count 0.16 k/cumm (0.0-0.7); Absolute Lymphocyte Count 1.99 k/cumm (1.2-3.4); Absolute Monocyte Count 0.46 k/cumm (0.11-0.7); Absolute Neutrophil Count 4.77 k/cumm (1.2-6.7); Basophils % 0.5; Eosinophils % 2.2; HCT 35.6 % (36.0-46.0); HGB 11.6 g/dL (12.0-15.5); Immature Grans % 0.1 %; Lymphocytes % 26.8; Mean Corp. HGB Concentration 32.6 g/dL (32.0-36.0); Mean Corpuscular Hemoglobin 28.9 pg (27.0-33.0); Mean Corpuscular Volume 88.8 fL (80-95); Mean Platelet Volume 9.8 fL (8.0-11.0); Monocytes % 6.2; Neutrophils % 64.2; Platelet Count 179 x1000/uL (130-400); RBC 4.01 m/cumm (4.00-5.20); White Blood Cell Count 7.43 k/cumm (4.4-10.8)
[2019-06-15 18:17] LABS: INR 1.9 (0.9-1.1); PTT Activated 31.9 sec (21.0-31.4); Prothrombin Time 18.9 sec (9.3-11.0)
[2019-06-15 18:18] LABS: ALT 29 U/L (14-59); AST 25 U/L (15-37); Alkaline Phosphatase 79 U/L (46-116); Anion Gap 9.5 mmol/L (3-11); BUN 35 mg/dL (7-18); Bilirubin, Total 0.2 mg/dL (0.2-1.0); CO2 26.5 mmol/L (21.0-32.0); CREATININE 0.95 mg/dL (0.55-1.02); Calcium 9.1 mg/dL (8.5-10.1); Chloride 104 mmol/L (98-107); Estimated GFR 57.19 (mL/min/1.73m2); Glucose 96 mg/dL (74-106); Lipase 161 U/L (73-393); Potassium 3.9 mmol/L (3.5-5.1); Sodium 140 mmol/L (136-145); Total Protein 7.3 g/dL (6.4-8.2)
[2019-06-15 18:19] LABS: Troponin I < 0.05 ng/Ml (<0.06)
== END 2019-06-15 18:50 | disposition left against medical advice (07) ==
PROVIDERS: Emergency Provider Emergency Medicine; PCP Family Medicine
DX: R07.9 Chest pain, unspecified (principal); R68.84 Jaw pain; M54.6 Pain in thoracic spine; Z53.29 Procedure and treatment not carried out because of patient's decision for other reasons; Z79.01 Long term (current) use of anticoagulants; I35.0 Nonrheumatic aortic (valve) stenosis
CPT/HCPCS: 36415; 80053; 83690; 93005; 99284; 84484; 85025; 85610; 85730; 93010

== ENCOUNTER 2019-06-26 10:01 | Outpatient (CLI) | payer MEDICARE, OTHER, SELFPAY ==
[2019-06-26 14:11] LABS: Prothrombin Time 20.1 sec (9.3-11.0)
== END 2019-06-26 10:21 ==
PROVIDERS: PCP Family Medicine; Visit Provider Family Medicine
DX: I48.91 Unspecified atrial fibrillation (principal); Z79.01 Long term (current) use of anticoagulants
CPT/HCPCS: 36415; 85610

== ENCOUNTER 2019-07-18 02:25 | Outpatient (CLI) | payer MEDICARE, OTHER, SELFPAY ==
[2019-07-18 09:24] LABS: INR 1.8 (0.9-1.1); Prothrombin Time 18.1 sec (9.3-11.0)
== END 2019-07-18 02:45 ==
PROVIDERS: PCP Family Medicine; Visit Provider Family Medicine
DX: I48.91 Unspecified atrial fibrillation (principal); Z79.01 Long term (current) use of anticoagulants
CPT/HCPCS: 36415; 85610

== ENCOUNTER 2019-07-31 02:29 | Outpatient (CLI) | payer MEDICARE, OTHER, SELFPAY ==
[2019-07-31 11:13] LABS: INR 1.7 (0.9-1.1); Prothrombin Time 16.6 sec (9.3-11.0)
== END 2019-07-31 02:49 ==
PROVIDERS: PCP Family Medicine; Visit Provider Family Medicine
DX: I48.91 Unspecified atrial fibrillation (principal); Z79.01 Long term (current) use of anticoagulants
CPT/HCPCS: 36415; 85610

== ENCOUNTER 2019-08-07 03:55 | Outpatient (CLI) | payer MEDICARE, OTHER, SELFPAY ==
[2019-08-07 12:28] LABS: INR 2.4 (0.9-1.1); Prothrombin Time 23.9 sec (9.3-11.0)
== END 2019-08-07 04:15 ==
PROVIDERS: PCP Family Medicine; Visit Provider Family Medicine
DX: I48.91 Unspecified atrial fibrillation (principal); Z79.01 Long term (current) use of anticoagulants
CPT/HCPCS: 36415; 85610

== ENCOUNTER 2019-08-13 01:55 | Outpatient (CLI) | payer MEDICARE, OTHER, SELFPAY ==
[2019-08-13 12:17] LABS: INR 2.4 (0.9-1.1)
== END 2019-08-13 02:15 ==
PROVIDERS: PCP Family Medicine; Visit Provider Family Medicine
DX: I48.91 Unspecified atrial fibrillation (principal); Z79.01 Long term (current) use of anticoagulants
CPT/HCPCS: 36415; 85610

== ENCOUNTER 2019-09-30 23:18 | Emergency (ER) | payer MEDICARE, OTHER, SELFPAY ==
[2019-09-30 23:22] VITALS: BP 200/73; PULSE 72; RESP 20; TEMP 36.8; O2SAT 97
--- NOTE | 2019-09-30 23:29 | ED.GENADUL_ITS ---
Discharge Plan Disposition Patient Disposition: AGAINST MEDICAL ADVICE Condition: Stable Discharge Details Clinical Impression: Chest pain Primary Care Provider: Jordan Lobo ED Provider: Kiran Buck Home Meds and New Rx's Prescriptions: Continued riboflavin (vitamin B2) [Vitamin B-2] 100 MG tablet 400 mg PO 3x/week RF: 0 lutein 20 MG capsule 20 mg PO DAILY RF: 0 diltiazem HCl 30 mg tablet 30 mg PO BID Qty: 180 RF: 4 coenzyme Q10 30 mg capsule 30 mg PO DAILY PRNRF: 0 levothyroxine [Synthroid] 112 mcg tablet 112 mcg PO DAILY Qty: 90 RF: 4 acyclovir 400 mg tablet 400 mg PO DAILY Qty: 90 RF: 4 warfarin [Coumadin] 5 mg tablet See Rx Instructions PO DIRECTED Qty: 135 RF: 3 potassium chloride 10 MEQ tablet extended release 1 tab PO QAM RF: 0 vitamin A 8,000 unit capsule 8,000 unit PO .QOD RF: 0 Discharge Instructions Instructions: Chest Pain (ED) Additional Instructions: follow up with your primary care provider as soon as possible your INR was 3.0 if you have worsening pain, difficulty breathing or feel more ill return to the emergency department Medical Decision Making 79 yo female with hx of aortic stenosis, afib, cva, who comes in with chest pain. She states an hour ago she had sudden onset sharp left sided chest pain that lasted twenty minutes and resolved and has no current pain or symptoms. Denies dyspnea, fevers, cough, abd pain, diaphoresis, n/v. Has clear lungs and no jvd speaking in full sentences. She does have hx of carotid dissection and I discussed though unlikely can't rule out dissection without cta. She has capacity to make her own decisions and declines CTA at this time and understands risks of missing a dissection including and permanent disabilty. Willobtain lab work to eval for acs though story is atypical for this. No hypoxia, tachycardia, pleuritic pain or evidence of dvt so doubt PE and she declines CT regardless. patients labs unremarkable and she remains asymptoamtic. She declines to stay for delta troponin and is leaving against my medical advise. Advised to f/u with pcp and return precautions given Differential Diagnosis Differential Diagnosis: muscle spasm, acs, dissection Medical Records Medical records reviewed: Yes I reviewed the patient's medical records. Lab Data Lab results reviewed: Yes I reviewed the patient's lab results. ECG Data Attestation: I personally reviewed and interpreted this ECG (s) as follows: Prior ECG tracings: not available for review Interpretation: sinus rhythm, rate of 66, qtc 440, no acute st t wave ischemic findings HPI General Mode of arrival: ambulatory . Date/Time Provider Initiated Documentation: 09/30/19 23:19 . Limitations to Documentation: no limitations . Information obtained by: patient . History of Present Illness 79 year old F presents to the emergency department with the chief complaint of chest pain, described as moderate, Patient started experiencing this hour(s) (1) and it has been now resolved. No relieving factors improve symptom(s), No exacerbating factors reported . Patient did receive the following treatments prior to arrival, none Related Data Home Medications Medication Instructions Recorded Confirmed potassium chloride 1 tab PO QAM 07/13/14 06/15/19 lutein 20 mg PO DAILY 09/09/16 06/15/19 riboflavin (vitamin B2) [Vitamin 400 mg PO 3x/week 09/09/16 06/15/19 B-2] diltiazem HCl 30 mg tablet 30 mg PO BID #180 tab-cap 06/07/18 06/15/19 coenzyme Q10 30 mg capsule 30 mg PO DAILY PRN 11/16/18 06/15/19 vitamin A 8,000 unit capsule 8,000 unit PO .QOD cap 11/16/18 06/15/19 levothyroxine 112 mcg tablet 112 mcg PO DAILY #90 tab-cap 02/02/19 06/15/19 acyclovir 400 mg tablet 400 mg PO DAILY #90 tab-cap 06/08/19 06/15/19 warfarin 5 mg tablet See Rx Instructions PO DIRECTED 06/08/19 06/15/19 #135 tab-cap Previous Rx's Medication Instructions Recorded diltiazem HCl 30 mg tablet 30 mg PO BID #180 tab-cap 06/07/18 levothyroxine 112 mcg tablet 112 mcg PO DAILY #90 tab-cap 02/02/19 acyclovir 400 mg tablet 400 mg PO DAILY #90 tab-cap 06/08/19 warfarin 5 mg tablet See Rx Instructions PO DIRECTED 06/08/19 #135 tab-cap Allergies Allergy/AdvReac Type Severity Reaction Status Date / Time Penicillins Allergy Intermediate KNEE Verified 06/15/19 17:54 SWELLING Sulfa (Sulfonamide Allergy Intermediate Hives Verified 06/15/19 17:54 Antibiotics) codeine AdvReac Intermediate NAUSEA/VOMI Verified 06/15/19 17:54 TING doxycycline AdvReac Intermediate HEADACHES Verified 06/15/19 17:54 morphine AdvReac Mild NAUSEA/VOMI Verified 06/15/19 17:54 TING Opioids-Meperidine and AdvReac Unknown unknown Verified 06/15/19 17:54 Related [Opioids-Meperidine \E&E\ Related] General AMIE: 2 Review of Systems All systems reviewed & are unremarkable except as noted in HPI and below Constitutional Constitutional: Denies chills, Denies fever(s) and Denies weakness ENT Ears, Nose, Mouth, and Throat: Denies change in voice Cardiovascular Cardiovascular: Denies dyspnea Respiratory Respiratory: Denies cough and Denies dyspnea Gastrointestinal Gastrointestinal: Denies abdominal pain, Denies nausea and Denies vomiting Musculoskeletal Musculoskeletal: Denies joint swelling Integumentary/Breasts Skin/Breast: Denies rash Neurologic Neurologic: Denies weakness Psychiatric Psychiatric: Denies depression [facility] Medical History (Updated 10/01/19 @ 00:16 by Kiran Buck MD) Abnormal weight loss (Resolved) Atrial fibrillation (Chronic) 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) Hypothyroidism (Chronic) left thryoid nodule Migraine (Chronic) Trochanteric bursitis, right hip (Chronic) Surgical History (Updated 11/17/18 @ 07:53 by Jordan Lobo MD) Appendectomy (~1960) , Ectopic REMOVED 1 TUBE PROCEDURES 2 BUNIONECTOMIES IN THE LATE BENIGN BREAST CYST REMOVED Replacement of total knee joint RIGHT Status post appendectomy (Resolved) Status post tonsillectomy and adenoidectomy (Resolved) Status post total knee replacement (Resolved) Tonsillectomy and adenoidectomy Social History (Updated 11/21/18 @ 12:04 by Juan Dupont) Smoking/Tobacco Use Status: Former Tobacco Use Tobacco: How many years used: 8 Second Hand Exposure: Yes Alcohol Intake: never Drug use: Current Sobriety Substance use type: does not use, former substance user, marijuana and crack/cocaine Caregiver/Support person: No Household members: significant other Housing: house Do you need help understanding health information?: Never Pets and animals: Yes Pets and animals: dog(s) Sexually active: No Do you think of yourself as: straight/heterosexual Current gender identity: female What is your relationship status?: living with partner How often do you talk on the phone with friends or family?: three or more times per week How often do you get together with friends or relatives?: once per week How often do you attend buddhism or mosque services?: decline to answer Do you belong to any clubs or organized social groups?: no Panel score (0-1 are the most socially isolated patients): 2 What type of physical activity do you participate in: decline to answer Duration: 15-30 minutes/day Frequency: 1-2 times per week Kate/Mormon: Buddhist Special kate needs: No Seatbelt use: always Helmet use: No 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 Do you feel safe at home: Yes Do you feel safe in your relationship?: Yes Exam Const General: no acute distress Orientation: alert HENMT Head: normal to inspection Ears: external ears normal General nose exam: external nose normal Mouth: moist mucous membranes Eyes General: appearance normal, both eyes and all related structures Neck Neck: normal visual inspection Resp Effort & Inspection: normal respiratory effort and able to speak in complete sentences Cardio Rate: regular rate Skin General skin exam: no rashes or lesions noted Neuro General: patient alert and patient oriented x3 Extrem General: normal to inspection Psych Mental Status: mental status grossly normal
[2019-09-30 23:42] LABS: Abs Immature Grans 0.02 k/cumm (0.0-0.09); Absolute Basophil Count 0.02 k/cumm (0.0-0.2); Absolute Eosinophil Count 0.13 k/cumm (0.0-0.7); Absolute Lymphocyte Count 2.27 k/cumm (1.2-3.4); Absolute Monocyte Count 0.49 k/cumm (0.11-0.7); Absolute Neutrophil Count 5.07 k/cumm (1.2-6.7); Basophils % 0.3; Eosinophils % 1.6; HCT 35.3 % (36.0-46.0); HGB 11.8 g/dL (12.0-15.5); Immature Grans % 0.3 %; Lymphocytes % 28.4; Mean Corp. HGB Concentration 33.4 g/dL (32.0-36.0); Mean Corpuscular Hemoglobin 29.5 pg (27.0-33.0); Mean Corpuscular Volume 88.3 fL (80-95); Monocytes % 6.1; Neutrophils % 63.3; Platelet Count 181 x1000/uL (130-400); RBC Distribution Width 12.9 % (11.7-14.6)
[2019-09-30 23:57] LABS: PTT Activated 38.4 sec (21.0-31.4); Prothrombin Time 29.2 sec (9.3-11.0)
[2019-10-01 00:01] LABS: ALT 29 U/L (14-59); AST 24 U/L (15-37); Albumin 3.9 g/dL (3.4-5.0); Alkaline Phosphatase 82 U/L (46-116); Anion Gap 8.9 mmol/L (3-11); BUN 32 mg/dL (7-18); Bilirubin, Total 0.3 mg/dL (0.2-1.0); CO2 26.1 mmol/L (21.0-32.0); CREATININE 1.19 mg/dL (0.55-1.02); Calcium 8.8 mg/dL (8.5-10.1); Chloride 103 mmol/L (98-107); Estimated GFR 43.98 (mL/min/1.73m2); Glucose 111 mg/dL (74-106); Magnesium 2.6 mg/dL (1.8-2.4); Potassium 4.1 mmol/L (3.5-5.1); Sodium 138 mmol/L (136-145); Total Protein 7.7 g/dL (6.4-8.2); Troponin I < 0.05 ng/Ml (<0.06)
[2019-10-01 00:40] VITALS: RESP 18
[2019-10-01 01:38] VITALS: BP 146/72; PULSE 78; RESP 18; TEMP 36.8; O2SAT 100
== END 2019-10-01 00:50 | disposition left against medical advice (07) ==
PROVIDERS: Emergency Provider Emergency Medicine; PCP Family Medicine
DX: R07.89 Other chest pain (principal); Z53.29 Procedure and treatment not carried out because of patient's decision for other reasons
CPT/HCPCS: 36415; 80053; 93005; 99283; 83735; 84484; 85025; 85610; 85730; 93010

== ENCOUNTER 2019-10-16 00:39 | Outpatient (CLI) | payer MEDICARE, OTHER, SELFPAY ==
--- NOTE | 2019-10-16 | DI.US_ITS ---
APPROVED REPORT EXAM: Comprehensive 2D, Doppler, and color-flow Echocardiogram Patient Location: Out-Patient Product Development Specialist: Rhea Mcintyre RDCS (AE) Indications: Aortic Stenosis Other Information Study Quality: Adequate Conclusion Left Ventricle : The left ventricle is normal size. The left ventricular systolic function is normal. The left ventricular ejection fraction is within the normal range. There is normal left ventricular wall thickness. There is normal LV segmental wall motion. The left ventricular diastolic function is indeterminate LVEF is 50-55%. Right Ventricle : The right ventricle is normal size. The right ventricular systolic function is norm al. The RVSP is 26 mmHg. Atria : The left atrium size is normal. The right atrium size is normal. Aortic Valve : Aortic valve is calcified. Aortic valve is trileaflet. Mild aortic regurgitation. Mode rate aortic stenosis (Peak/mean aortic valve gradient is 25/41mmMg). Aortic valve area by VTI is 0.9 6. Mitral Valve : Moderate mitral annular calcification. Trace mitral regurgitation. No evidence of mitr al valve stenosis. Great Vessels : IVC is normal in size and collapses >50% with inspiration. Estimated RVSP is 26 mmHg . Compared to echocardiogram from 03/07/2019: There is no significant change. Wall motion Left Ventricle The left ventricle is normal size. The left ventricular systolic function is normal. The left ventric ular ejection fraction is within the normal range. There is normal left ventricular wall thickness. T here is normal LV segmental wall motion. The left ventricular diastolic function is indeterminate The re is no ventricular septal defect visualized. LVEF is 50-55%. Right Ventricle The right ventricle is normal size. The right ventricular systolic function is normal. The RVSP is 26 mmHg. Atria The left atrium size is normal. The right atrium size is normal. The interatrial septum is intact wit h no evidence for an atrial septal defect. Aortic Valve Aortic valve is calcified. Aortic valve is trileaflet. Moderate aortic stenosis (Peak/mean aortic tavares ve gradient is 25/41mmMg). Aortic valve area by VTI is 0.96. Mild aortic regurgitation. Mitral Valve Moderate mitral annular calcification. No evidence of mitral valve stenosis. Trace mitral regurgitati on. Tricuspid Valve The tricuspid valve is normal in structure. There is no tricuspid valve stenosis. Mild tricuspid regu rgitation. Pulmonic Valve The pulmonary valve is normal in structure. There is no pulmonic valvular stenosis. There is no pulmo rosa valvular regurgitation. Great Vessels The aortic root is normal in size. The ascending aorta is normal in size. IVC is normal in size and c ollapses >50% with inspiration. Estimated RVSP is 26 mmHg. Pericardium There is no pericardial effusion. There is no pleural effusion. 2D Dimensions IVSD d PLAX 1.00 cm F: 0.6-1.0 LV Vol A2C d MOD 67.1 mL LVPW d PLAX 1.02 cm F: 0.6 - 1.0 LV Vol A4C d MOD 103.7 mL LVID d PLAX 4.38 cm F: 3.8 - 5.2 LA vol/ BSA A2C s A-L 40.6 mL/m2 LVDs 3.15 cm F: 2.2 - 3.5 LA vol/ BSA A4C s A-L 28.3 mL/m2 Ao Root d 3.02 cm F: 2.7 - 3.3 LA Vol/ BSA Biplane s A-L 34.8 mL/m2 RA Area A4C 21.64 cm2 LA Area A4C s MOD 18.80 cm2 RA Vol/ BSA A4C s A-L 40.1 mL/m2 LA Area A2C s MOD 23.09 cm2 Ao Asc Diam d 3.15 cm F: 2.3 - 3.1 LV EF A4C MOD 56.8 % LV EF Teichholz 53.2 % LV EF A2C MOD 49.1 % LVEF (Monique's) 54.79 % F: 54 - 74 LV EF Biplane MOD 54.8 % LV Volume 66.76 mL F: 46 - 106 LV Volume Index 35.13 mL/m2 F: 29 - 61 LV Vol Biplane MOD 87.6 mL FS 27.20 % M-Mode TAPSE 2.28 cm (M/F) >1.7 LV Diastology MV E' medial 0.119 (>0.07 m/s) E/A Ratio 0.7 LV E/e MED 6.20 (<14) MV E Vmax 0.74 (0.4-1.3 m/s) MV E' lateral 0.070 (>0.1 m/s) MV A Vmax 1.00 (0.4-1.3 m/s) LV E/e LAT 10.60 (<14) MV E/A Ratio 0.73 MV E/E' medial 6.24 MV E/E' lateral 10.62 Aortic Valve LVOT Area 3.07 cm2 AoV Area Vmax 0.92 cm2 LVOT Vmax 0.96 m/s AoV Area/ BSA (Vmax) 0.48 cm2/m2 LVOT Mean Moe. 0.75 m/s PIYUSH Mean Moe. 0.94 cm2 LVOT Peak Grad 3.7 mmHg PIYUSH Mean Moe. Index 0.49 cm2/m2 LVOT Mean Grad 2.4 mmHg AR DT 1698 msec LVOT VTI 0.242 m AR PHT 493 msec LVOT Diam s 1.95 cm (M/F) 1.5-2.5 AoV Vmax 3.20 (0.5-1.3 m/s) Velocity Ratio 0.30 AoV Mean Moe. 2.44 m/s AoV Peak Grad 41.0 mmHg LVOT SV 74.28 mL AoV Mean Grad 25.6 (<5 mmHg) AoV VTI 0.778 (0.18-0.25 m) AoV Area VTI 0.96 (2.5-4.5 cm2) AoV Area/ BSA (VTI) 0.50 cm/m2 Mitral Valve MV DT 232 (160-240 msec) MV PHT 67 msec MV Area PHT 3.27 cm2 Pulmonary Valve PV Vmax 1.14 (0.5-1.5 m/s) RVOT Peak Gr. 1.66 mmHg PV Peak Grad 5.2 mmHg RVOT Mean Gr. 0.80 mmHg PV Mean Grad 2.7 mmHg RVOT VTI 0.148 m PV VTI 0.257 m RVOT Vmax 0.64 m/s Tricuspid Valve TR Peak Grad 23.3 mmHg TR Vmax 2.42 m/s RA Pressure 3.00 mmHg RVSP (TR) 26.3 mmHg
== END 2019-10-16 00:59 ==
PROVIDERS: PCP Family Medicine; Visit Provider Internal Medicine Cardiovascular Disease
DX: I35.0 Nonrheumatic aortic (valve) stenosis (principal); R07.89 Other chest pain
CPT/HCPCS: 93306

== ENCOUNTER 2019-11-06 15:17 | Outpatient (REF) | payer MEDICARE, OTHER, SELFPAY ==
--- NOTE | 2019-11-06 14:33 | PAPFT_PTH ---
PATIENT: Susie Bhatt LOC: N U#:[id number] AGE/SX: 79/F ROOM: RE11/06/[address]: SARA Dolan : 1940 BED: DIS: 11/06/2019 SPEC #: [id number] RECD: 11/07/19 12:56 STATUS: JULISA REQ #: [id number] ANDREA: 11/06/19 14:[address]: Elizabeth Trotter DEPT: [facility] Cytology RECD BY: Michelle Perdomo ENTERED: 11/07/19 12:57 SP TYPE: PAPFT OTHR DR: Jordan Lobo MD Tissues: 1 - CX/ENDOCX FOR PAP SMEARS Procedures: PAP THIN PREP/UVM Screening HPV DNA PROBE Comments: [id number]
== END 2019-11-06 15:37 ==
LOC: LBN 15:17
PROVIDERS: PCP Family Medicine; Visit Provider Nurse Practitioner Family
DX: R30.0 Dysuria (principal); Z12.4 Encounter for screening for malignant neoplasm of cervix; Z11.51 Encounter for screening for human papillomavirus (HPV)
CPT/HCPCS: 88142; 87086; 87624

== ENCOUNTER 2020-01-22 03:04 | Outpatient (CLI) | payer MEDICARE, OTHER, SELFPAY ==
[2020-01-22 12:42] LABS: Anion Gap 8.7 mmol/L (3-11); BUN 30 mg/dL (7-18); CO2 28.3 mmol/L (21.0-32.0); CREATININE 0.78 mg/dL (0.55-1.02); Calcium 9.3 mg/dL (8.5-10.1); Chloride 104 mmol/L (98-107); Glucose 88 mg/dL (74-106); Potassium 4.4 mmol/L (3.5-5.1); Sodium 141 mmol/L (136-145)
[2020-01-22 12:48] LABS: Prothrombin Time 20.2 sec (9.3-11.0)
[2020-01-22 12:50] LABS: FREE T4 1.09 ng/dL (0.76-1.46); TSH 1.21 uIU/mL (0.36-3.74)
[2020-01-22 17:32] LABS: T3, Total 101 ng/dL (97-169)
== END 2020-01-22 03:24 ==
PROVIDERS: Internal Medicine Endocrinology, Diabetes & Metabolism; PCP Family Medicine; Visit Provider Family Medicine
DX: I10 Essential (primary) hypertension (principal); E04.2 Nontoxic multinodular goiter; I48.91 Unspecified atrial fibrillation; Z79.01 Long term (current) use of anticoagulants
CPT/HCPCS: 36415; 80048; 84439; 84443; 84480; 85610

== ENCOUNTER 2020-02-19 03:48 | Outpatient (CLI) | payer MEDICARE, OTHER, SELFPAY ==
[2020-02-19 13:00] LABS: Iron 102 ug/dL (50-170); Total Iron Binding Capacity 340 ug/dL (250-450); Transferrin Sat 30 % (15-50)
[2020-02-19 13:18] LABS: INR 2.4 (0.9-1.1); Prothrombin Time 23.5 sec (9.3-11.0)
[2020-02-19 15:24] LABS: Ferritin 101 ng/mL (8-252)
== END 2020-02-19 04:08 ==
PROVIDERS: PCP Nurse Practitioner; Visit Provider Family Medicine
DX: D64.9 Anemia, unspecified (principal); I48.91 Unspecified atrial fibrillation
CPT/HCPCS: 36415; 82728; 83540; 83550; 85610

== ENCOUNTER 2020-03-18 01:27 | Outpatient (CLI) | payer MEDICARE, OTHER, SELFPAY ==
[2020-03-18 12:30] LABS: INR 2.9 (0.9-1.1); Prothrombin Time 28.6 sec (9.3-11.0)
== END 2020-03-18 01:47 ==
PROVIDERS: PCP Nurse Practitioner; Visit Provider Nurse Practitioner
DX: I48.11 Longstanding persistent atrial fibrillation (principal); Z79.01 Long term (current) use of anticoagulants
CPT/HCPCS: 36415; 85610

== ENCOUNTER 2020-03-27 02:11 | Outpatient (CLI) | payer MEDICARE, OTHER, SELFPAY ==
--- NOTE | 2020-03-27 07:30 | DI.RAD_ITS ---
EXAM: XR HIP LT COMPLETE AP PELVIS INDICATION: LEFT HIP PAIN,[id number]. COMPARISON: MR MRI L LOWER JOINT WO CONT from 08/04/2017 TECHNIQUE: 2D digital imaging was performed. FINDINGS: Left hip joint space is well maintained. There is minimal acetabular spurring. There is no signific ant spurring from the femoral head. Mild enthesis fights are seen at the greater trochanters and rajendra ac wings. The right hip joint shows mild joint space narrowing. There is sclerosis and spurring of the superior acetabulum. No femoral head spurring is seen. There is an incidental small calcified f ibroid. Vascular calcifications are seen. There are degenerative changes of the lower lumbar spine. IMPRESSION: Mild degenerative changes of the hips, left greater than right. DATA REPOSITORY: RADIATION DOSE DELIVERED:
--- NOTE | 2020-03-27 14:00 | DI.DEXA_ITS ---
EXAM: XR DEXA BONE DENSITY W/WO TATIANA CLINICAL HISTORY: osteopenia,SCREENING FOR OSTEOPOROSIS IN POSTMENOPAUSAL WOMAN,Z78.0 TECHNIQUE: [employer] C densitometer COMPARISON: CR XR HIP LT COMPLETE AP PELVIS from 03/27/2020 FINDINGS: Lateral test development engineer view of the thoracic and lumbar spine shows no evidence of compression fractures. The upper thoracic vertebral bodies are not well seen. The bone mineral density measurements of lumbar s pine correspond to a total T-score of -2.2, in the osteopenic range. The bone mineral density measur ements of the left hip correspond to total T-score of -2.0 and a femoral neck T-score of -2.4, in the osteopenic range. The bone mineral density measurements of the left forearm correspond to a total T -score of -2.4 and a T-score of the distal 3rd of -1.7, in the osteopenic range. IMPRESSION: Osteopenia of the lumbar spine, left hip and left forearm.
== END 2020-03-27 02:31 ==
PROVIDERS: PCP Nurse Practitioner; Visit Provider Family Medicine
DX: M85.88 Other specified disorders of bone density and structure, other site (principal); Z78.0 Asymptomatic menopausal state; M16.0 Bilateral primary osteoarthritis of hip
CPT/HCPCS: 77080; 73502

== ENCOUNTER 2020-04-15 01:39 | Outpatient (CLI) | payer MEDICARE, OTHER, SELFPAY ==
[2020-04-15 12:34] LABS: INR 1.8 (0.9-1.1); Prothrombin Time 18.2 sec (9.3-11.0)
== END 2020-04-15 01:59 ==
PROVIDERS: PCP Nurse Practitioner; Visit Provider Nurse Practitioner
DX: I48.91 Unspecified atrial fibrillation (principal); Z79.01 Long term (current) use of anticoagulants
CPT/HCPCS: 36415; 85610

== ENCOUNTER 2020-04-25 01:31 | Outpatient (CLI) | payer MEDICARE, OTHER, SELFPAY ==
[2020-04-25 13:20] LABS: INR 2.6 (0.9-1.1); Prothrombin Time 25.7 sec (9.3-11.0)
== END 2020-04-25 01:51 ==
PROVIDERS: Family Medicine; PCP Nurse Practitioner; Visit Provider Nurse Practitioner
DX: I48.91 Unspecified atrial fibrillation (principal); Z79.01 Long term (current) use of anticoagulants
CPT/HCPCS: 36415; 85610

== ENCOUNTER 2020-06-19 02:51 | Outpatient (CLI) | payer MEDICARE, OTHER, SELFPAY ==
[2020-06-19 12:45] LABS: INR 2.5 (0.9-1.1); Prothrombin Time 24.9 sec (9.3-11.0)
== END 2020-06-19 03:11 ==
PROVIDERS: Family Medicine; PCP Nurse Practitioner; Visit Provider Nurse Practitioner
DX: I48.91 Unspecified atrial fibrillation (principal); Z79.01 Long term (current) use of anticoagulants
CPT/HCPCS: 36415; 85610

== ENCOUNTER 2020-07-16 02:50 | Outpatient (CLI) | payer MEDICARE, OTHER, SELFPAY ==
[2020-07-16 12:45] LABS: INR 2.9 (0.9-1.1); Prothrombin Time 28.4 sec (9.3-11.0)
== END 2020-07-16 02:51 | disposition home or self-care (01) ==
LOC: LOS 02:50
PROVIDERS: Family Medicine; PCP Nurse Practitioner; Visit Provider Nurse Practitioner
DX: I48.91 Unspecified atrial fibrillation (principal); Z79.01 Long term (current) use of anticoagulants
CPT/HCPCS: 36415; 85610

== ENCOUNTER 2020-09-10 03:11 | Outpatient (CLI) | payer MEDICARE, OTHER, SELFPAY ==
[2020-09-10 12:07] LABS: INR 2.3 (0.9-1.1)
== END 2020-09-10 03:12 | disposition home or self-care (01) ==
PROVIDERS: Family Medicine; PCP Nurse Practitioner; Visit Provider Nurse Practitioner
DX: I48.91 Unspecified atrial fibrillation (principal); Z79.01 Long term (current) use of anticoagulants
CPT/HCPCS: 36415; 85610

== ENCOUNTER 2020-10-09 03:16 | Outpatient (CLI) | payer MEDICARE, OTHER, SELFPAY ==
[2020-10-09 10:27] LABS: INR 2.5 (0.9-1.1); Prothrombin Time 24.9 sec (9.3-11.0)
== END 2020-10-09 03:17 | disposition home or self-care (01) ==
PROVIDERS: PCP Nurse Practitioner; Visit Provider Family Medicine
DX: I48.91 Unspecified atrial fibrillation (principal); Z79.01 Long term (current) use of anticoagulants
CPT/HCPCS: 36415; 85610

== ENCOUNTER 2020-12-22 03:16 | Outpatient (CLI) | payer MEDICARE, SELFPAY ==
[2020-12-22 13:01] LABS: INR 3.8 (0.9-1.1); Prothrombin Time 36.8 sec (9.3-11.0)
== END 2020-12-22 03:17 | disposition home or self-care (01) ==
LOC: LOS 03:16
PROVIDERS: PCP Nurse Practitioner; Visit Provider Nurse Practitioner
DX: I48.91 Unspecified atrial fibrillation (principal); Z79.01 Long term (current) use of anticoagulants
CPT/HCPCS: 36415; 85610

== ENCOUNTER 2020-12-29 02:23 | Outpatient (CLI) | payer MEDICARE, SELFPAY ==
[2020-12-29 11:48] LABS: INR 2.8 (0.9-1.1); Prothrombin Time 27.3 sec (9.3-11.0)
== END 2020-12-29 02:24 | disposition home or self-care (01) ==
LOC: LBO 02:23
PROVIDERS: PCP Nurse Practitioner; Visit Provider Nurse Practitioner
DX: I48.91 Unspecified atrial fibrillation (principal); Z79.01 Long term (current) use of anticoagulants
CPT/HCPCS: 36415; 85610

== ENCOUNTER 2020-12-29 11:55 | Outpatient (REF) | payer MEDICARE, SELFPAY ==
--- NOTE | 2020-12-29 10:50 | PAPFT_PTH ---
PATIENT: Susie Bhatt LOC: [facility] U#:[id number] AGE/SX: 80/F ROOM: RE12/29/[address]: SARA Dolan : 1940 BED: DIS: 12/29/2020 SPEC #: [id number] RECD: 12/29/20 12:55 STATUS: JULISA REQ #: [id number] ANDREA: 12/29/20 10:[address]: Elizabeth Trotter DEPT: [facility] Cytology RECD BY: Michelle Perdomo ENTERED: 12/29/20 12:56 SP TYPE: PAPFT OTHR DR: Yuliya Raymond, PhD [employer] Tissues: 1 - CX/ENDOCX FOR PAP SMEARS Procedures: PAP THIN PREP/[facility] Screening HPV DNA PROBE Comments: [id number]
== END 2020-12-29 11:56 | disposition home or self-care (01) ==
LOC: LBN 11:55
PROVIDERS: PCP Nurse Practitioner; Visit Provider Nurse Practitioner Family
DX: Z12.4 Encounter for screening for malignant neoplasm of cervix (principal); Z11.51 Encounter for screening for human papillomavirus (HPV); Z01.411 Encounter for gynecological examination (general) (routine) with abnormal findings; R87.810 Cervical high risk human papillomavirus (HPV) DNA test positive
CPT/HCPCS: 88142; 87624

== ENCOUNTER 2021-01-15 03:17 | Outpatient (CLI) | payer MEDICARE, SELFPAY ==
--- NOTE | 2021-01-15 09:25 | DI.MAMMO_ITS ---
Exam(s) MAMMO SCREENING EXAM: MAMMO SCREENING CLINICAL HISTORY: SCREENING, Z12.39 TECHNIQUE: Bilateral full field digital CC and MLO mammographic images were obtained with 3D tomosyn thesis and utilizing computer aided detection (CAD). COMPARISON: Available for comparison. FINDINGS: Masses/Architectural Distortion: None seen. Microcalcifications: No suspicious pleomorphic-type are seen. Skin Thickening/Nipple Retraction: None. IMPRESSION: 1. No significant interval change with no specific features of malignancy noted. 2. Unless there is more urgent need, screening mammography is recommended, as per [employer] guidelines. BI-RADS Category 1 - Negative Breast Density - Category C - Heterogeneously dense Breast density category C or D implies that the patient has dense breast tissue. Dense breast tissue is very common and is not abnormal but dense breast tissue can make it harder to find cancer on a ma mmogram. Also, dense breast tissue may increase their breast cancer risk. This information about the result of the mammogram report was provided to the patient to raise their awareness. Use this report when you speak with the patient about their risks for breast cancer, which includes their family hist ory. At that time, you may recommend for more screening tests (Ultrasound or MRI) as they might be us eful based on their risk. A negative radiographic report should not delay biopsy if a dominant or clinically suspicious mass is present. Up to ten percent of cancers are not identified on mammography. A negative report may reinforce clinical impression. Adenosis and dense breasts may obscure an underlying neoplasm. False positive reports average 6 to 10%. Patient will receive a letter notifying them of these results.
== END 2021-01-15 03:37 ==
PROVIDERS: PCP Nurse Practitioner; Visit Provider Nurse Practitioner Family
DX: Z12.31 Encounter for screening mammogram for malignant neoplasm of breast (principal)
CPT/HCPCS: 36415; 77063; 77067; 84443; 84480; 85610

== ENCOUNTER 2021-01-15 04:15 | Outpatient (CLI) | payer MEDICARE, SELFPAY ==
[2021-01-15 10:14] LABS: INR 2.9 (0.9-1.1); Prothrombin Time 28.1 sec (9.3-11.0)
[2021-01-15 11:03] LABS: TSH 1.08 uIU/mL (0.36-3.74)
[2021-01-15 21:30] LABS: T3, Total 99 ng/dL (97-169)
== END 2021-01-15 04:16 | disposition home or self-care (01) ==
PROVIDERS: PCP Nurse Practitioner; Visit Provider Internal Medicine Endocrinology, Diabetes & Metabolism
DX: E04.2 Nontoxic multinodular goiter (principal); I48.91 Unspecified atrial fibrillation; Z79.01 Long term (current) use of anticoagulants
CPT/HCPCS: 36415; 84443; 84480; 85610

== ENCOUNTER 2021-01-27 04:57 | Outpatient (CLI) | payer MEDICARE, OTHER, SELFPAY ==
[2021-01-27 10:37] LABS: INR 2.7 (0.9-1.1); Prothrombin Time 26.3 sec (9.3-11.0)
[2021-01-27 11:13] LABS: CREATININE 1.1 mg/dL (0.55-1.02); Estimated GFR 48.04 (mL/min/1.73m2); Potassium 4.4 mmol/L (3.5-5.1)
== END 2021-01-27 04:58 | disposition home or self-care (01) ==
LOC: LBO 04:58
PROVIDERS: PCP Nurse Practitioner; Visit Provider Nurse Practitioner
DX: I48.11 Longstanding persistent atrial fibrillation (principal); Z79.01 Long term (current) use of anticoagulants
CPT/HCPCS: 36415; 82565; 84132; 85610